=== PATIENT | female | born 1980 | race Caucasian/White ===

== ENCOUNTER 2019-07-24 06:06 | Emergency (ER) | payer BC, SELFPAY ==
[2019-07-24 06:20] VITALS: BP 119/66; PULSE 77; RESP 17; TEMP 36.6; O2SAT 100
[2019-07-24] MEDS: KETOROLAC 30 MG/ML VIAL (*BKC) IV PUSH (06:50)
[2019-07-24] MEDS: METOCLOPRAMIDE HCL INJ 10 MG/2 ML VIAL IV PUSH (06:51)
[2019-07-24] MEDS: SODIUM CHLORIDE 0.9% IV 1,000 ML 999 ML IV CONT (06:51)
[2019-07-24] MEDS: methylPREDNISolone SOD SUCC 40 MG VIAL 80 MG IV PUSH (06:51)
[2019-07-24 07:08] LABS: Basophils Absolute Auto 0.1 K/mm3 (0.0-0.1); Basophils Percent Auto 1.2 % (0.2-1.2); Eosinophils Absolute Auto 0.7 K/mm3 (0-0.3); Eosinophils Percent Auto 8.8 % (0-4.4); Hematocrit 34.3 % (37.0-47.0); Hemoglobin 11.3 g/dL (12.0-15.0); Immature Granulocyte Absolute 0.02 K/mm3 (0.00-0.031); Immature Granulocyte Percent A 0.3 % (0-0.5); Lymphocytes Absolute Auto 2.59 K/mm3 (0.9-3.2); Lymphocytes Percent Auto 34.7 % (18.3-44.2); Mean Corpuscular HGB Conc 32.9 g/dl (32-36); Mean Corpuscular Hemoglobin 28.7 pg (26-34); Mean Corpuscular Volume 87.1 fl (80-100); Mean Platelet Volume 10.1 fl (7.4-10.4); Monocytes Absolute Auto 0.5 K/mm3 (0.1-0.6); Monocytes Percent Auto 6.4 % (2.6-8.5); Neutrophils Absolute Auto 3.6 K/mm3 (1.3-6.7); Neutrophils Percent Auto 48.6 % (45.5-73.1); Platelet Count Result 330 k/mm3 (150-375); Red Blood Count 3.94 M/mm3 (4.2-5.4); Red Cell Distribution Width 13.9 % (11.5-14.5); White Blood Count 7.5 K/mm3 (4.5-10.0)
[2019-07-24 07:21] LABS: Add Urine Microscopic? YES; Appearance Urine Clear (Clear); Bacteria Urine Trace /hpf; Bilirubin Urine Negative (Negative); Blood Urine 3+ (Negative); Color Urine Yellow (Yellow); Glucose Urine UA Negative (Negative); Ketones Urine Negative (Negative); Leukocyte Esterase Ur Negative LEU/UL (Negative); Mucus Urine Rare /lpf; Nitrate Urine Negative (Negative); Protein Urine Negative (Negative); RBC Urine 0-2 /hpf (0-2); Specific Grav Ur 1.012 (1.001-1.035); Squamous Epithelial Cell Urine Few /hpf (Few); Urobilinogen Urine Negative mg/dL (<2.0); WBC Urine 0-3 /hpf
[2019-07-24 07:23] LABS: Blood Urea Nitrogen 11 mg/dL (7-17); Calcium 8.6 mg/dL (8.4-10.2); Carbon Dioxide 23 mmol/L (22-30); Chloride 107 mmol/L (98-107); Estimated CRCL calculation 129 ml/min; Estimated Glomerular Filt Rate > 60; Glucose 90 mg/dL (65-105); Potassium 3.8 mmol/L (3.4-5.0); Sodium 135 mmol/L (137-145)
--- NOTE | 2019-07-24 08:02 | ED.GENADULT ---
HPI - General Adult General Chief complaint: Headache Stated complaint: headache Time Seen by Provider: 07/24/19 06:30 History of Present Illness HPI narrative: Patient is 39 y/o female complaining of sharp, bilateral frontal headache since yesterday. She rates her pain as 7/10. Her pain radiates to occipital region. She has some nausea and vomiting. She also reports seeing spots. She denies any fever, chill, neck pain/stiffness. She also denies any focal weakness or numbness. She reports history of migraine. Related Data Allergies Allergy/AdvReac Type Severity Reaction Status Date / Time No Known Allergies Allergy Unknown Unknown Verified 01/21/19 21:24 Review of Systems Constitutional: Constitutional: Reports as per HPI, Denies chills, Denies fever(s), Reports headache(s) and Denies weakness Eyes: Eyes: Denies blurry vision and Reports spots in vision ENT: Denies headache(s) and Denies neck pain Cardiovascular: Cardiovascular: Denies chest pain and Denies dyspnea Respiratory: Respiratory: Denies cough and Denies dyspnea Gastrointestinal: Gastrointestinal: Denies abdominal pain, Denies diarrhea, Reports nausea and Reports vomiting Genitourinary: Genitourinary: Denies hematuria and Denies dysuria Musculoskeletal: Musculoskeletal: Denies back pain and Denies neck pain Neurologic: Denies headache(s) and Denies weakness PMFSH Past Medical History Medical History (Updated 07/24/19 @ 08:34 by Isabella Haddad MD) Migraine Social History Social History Gender identity (if verbalized by the patient): Female Exam Const: General: no acute distress and well developed Orientation/consciousness: oriented to person, oriented to place, oriented to time and patient oriented x3 HENMT: Head: normocephalic Ears: external ears normal General nose exam: Normal external nose present Eyes: General: appearance normal, both eyes and all related structures Conjunctivae: conjunctivae normal Neck: Neck: normal visual inspection and full ROM Chest: Chest palpation & inspection: normal inspection of the chest and no tenderness Resp: Effort & Inspection: normal respiratory effort Auscultation: clear to auscultation bilaterally Cardio: Rate: regular rate Rhythm: regular rhythm GI: GI Palp: No abdominal tenderness and Yes Soft to palpation Skin: General skin exam: normal color and turgor normal Neuro: General: oriented to person, oriented to place, oriented to time and patient oriented x3 Cranial nerves: Yes CN's II-XII intact bilaterally Cognition (Neuro): normal cognition Speech: normal speech Motor exam (neuro): 5/5 motor strength present throughout Sensory Exam: normal sensation Coordination: [id number] test normal and devq-[id number] test normal Extrem: General: normal to inspection, full ROM and no pedal edema Psych: Appearance: grossly normal Mental Status: mental status grossly normal Affect: normal affect Course Vital Signs Vital signs: Vital Signs Temperature 36.6 C 07/24/19 06:20 Pulse Rate 77 07/24/19 06:20 Respiratory Rate 17 07/24/19 06:20 Blood Pressure 119/66 07/24/19 06:20 Pulse Oximetry 100 07/24/19 06:20 Temperature 36.6 C 07/24/19 06:20 Pulse Rate 77 07/24/19 08:36 Respiratory Rate 14 07/24/19 08:36 Blood Pressure 111/69 07/24/19 08:36 Pulse Oximetry 100 07/24/19 08:36 Medical Decision Making Vital Signs Vital Signs: Vital Signs Temperature 36.6 C 07/24/19 06:20 Pulse Rate 77 07/24/19 06:20 Respiratory Rate 17 07/24/19 06:20 Blood Pressure 119/66 07/24/19 06:20 Pulse Oximetry 100 07/24/19 06:20 Temperature 36.6 C 07/24/19 06:20 Pulse Rate 77 07/24/19 08:36 Respiratory Rate 14 07/24/19 08:36 Blood Pressure 111/69 07/24/19 08:36 Pulse Oximetry 100 07/24/19 08:36 Lab Data Result diagrams: 07/24/19 07:02 07/24/19 07:02 Labs: L
[2019-07-24 08:36] VITALS: BP 111/69; PULSE 77; RESP 14; O2SAT 100
== END 2019-07-24 08:49 | disposition home or self-care (01) ==
PROVIDERS: Emergency Provider Emergency Medicine
DX: R51 Headache (principal)
CPT/HCPCS: 36415; 80048; 81001; 85025; 96361; 96374; 96375; 99284; J1200; J1885; J2765; J2920; J7030

== ENCOUNTER 2020-01-18 23:03 | Emergency (ER) | payer MEDICAID, SELFPAY ==
--- NOTE | ~2020-01-18 | XR_ITS ---
EXAMINATION: XR hand RT min 3V INDICATION: Right hand pain after fall TECHNIQUE: Three views of the right hand are obtained. COMPARISON: None available FINDINGS: There is no acute fracture, dislocation, or subluxation. The joint spaces and soft tissues are unremarkable. Mild irregularity of the shaft of the fifth metacarpal likely reflects prior injury . IMPRESSION: 1. No acute osseous abnormality. Reviewed, dictated and finalized at location A.
[2020-01-18 23:08] VITALS: BP 102/52; PULSE 90; RESP 18; TEMP 36.1; O2SAT 100
--- NOTE | 2020-01-19 00:22 | ED.UPPEXIN ---
HPI - Extremity Injury (Upper) General Chief Complaint: Extremity Injury, Upper Stated Complaint: possible broken wrist Time Seen by Provider: 01/18/20 23:15 History of Present Illness HPI narrative: Patient is a 39-year-old female who presents the ER with right hand pain. She was running up a hill chasing a dog when she tripped and fell on her outstretched hand. She felt a crack or pop. She has throbbing pain along the palm of her hand and it worsens with flexion of her fingers. No swelling or bruising. She not strike her head or lose consciousness. She does have an abrasion to her right knee. Related Data Home Medications Medication Instructions Recorded Confirmed No Home Medications 01/18/20 01/18/20 Allergies Allergy/AdvReac Type Severity Reaction Status Date / Time No Known Allergies Allergy Unknown Unknown Verified 01/18/20 23:14 Review of Systems Musculoskeletal: Musculoskeletal: Reports arthralgias, Denies joint swelling and Denies muscle cramps Integumentary/Breasts: Comments: Abrasion Neurologic: Denies focal weakness and Denies numbness PMFSH Past Medical History Medical History (Updated 01/19/20 @ 00:28 by Maikol Plata MD) Migraine Surgical History Surgical History (Updated 01/19/20 @ 00:23 by Maikol Plata MD) H/O: hysterectomy History of appendectomy History of cholecystectomy Social History Social History (Updated 01/19/20 @ 00:23 by Maikol Plata MD) Tobacco type: e-cigarettes/vaping Gender identity (if verbalized by the patient): Female Exam Narrative: Exam Narrative: GENERAL: Well-appearing, well-nourished, and in no acute distress. HEAD: Normocephalic, atraumatic. CHEST: Clear to auscultation. No respiratory distress. HEART: Regular rate and rhythm. Normal peripheral pulses. EXTREMITIES: Focused exam of the right upper extremity reveals no tenderness of the shoulder elbow with normal range of motion. The right wrist she has normal flexion but increased pain with extension. No snuffbox tenderness or ulnar styloid tenderness. Patient has tenderness along the third and fourth metacarpals on the palmar aspect of the hand. Also has increased pain with flexion of digits 3/4. Otherwise no deformity or bruising. Sensation intact. Normal radial pulses. SKIN: Warm, dry, abrasion right knee NEURO: No focal deficits. Alert and oriented x3. Course Course Emergency Course: X-ray negative for fracture. Patient placed in volar splint for comfort. Vital Signs Vital signs: Vital Signs Temperature 97 F L 01/18/20 23:08 Pulse Rate 90 01/18/20 23:08 Respiratory Rate 18 01/18/20 23:08 Blood Pressure 102/52 L 01/18/20 23:08 Pulse Oximetry 100 01/18/20 23:08 Temperature 97 F L 01/18/20 23:08 Pulse Rate 90 01/18/20 23:08 Respiratory Rate 18 01/18/20 23:08 Blood Pressure 102/52 L 01/18/20 23:08 Pulse Oximetry 100 01/18/20 23:08 Procedures Orthopedic Splinting/Casting Injury #1: Splinting/Casting Date: 01/19/20 Splinting/Casting Time: 00:26 Side: right Upper Extremity Injury Location: wrist Upper Extremity Immobilizer: volar splint Splint: customized in ED Pre-Procedure Neuro Vascular Exam: normal Post-Procedure Neuro Vascular Exam: normal Additional Comments: 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 MDM - Extremity Injury (Upper) Imaging Data My impression: X-ray right hand: Negative Discharge Plan Discharge Clinical Impression: Sprain and strain of wrist Patient Disposition: Home, Self-Care Condition: Stable Instructions: Splint Care (ED), Hand Sprain (ED) Additional Instructions: Return the ER if you have fever over 100.4 ?F, you have new injury, you have chest pain or shortness of breath, you have additional concerns. Your x-ray images were read as negative, if the radiologist finds a discrepancy in the morning you will be contacted. Prescriptions: No Action No Home
[2020-01-19 00:40] VITALS: BP 109/71; PULSE 84; RESP 16; O2SAT 100
--- NOTE | 2020-01-29 23:27 | PC.NURSE ---
LATE ENTRY This note is being entered to document information to the patient's record. The following information was omitted on [01/19/2020],short arm volar applied to right arm. +distal pulses by [jeimy snell].
== END 2020-01-19 00:40 | disposition home or self-care (01) ==
PROVIDERS: Emergency Provider Emergency Medicine
DX: S66.911A Strain of unspecified muscle, fascia and tendon at wrist and hand level, right hand, initial encounter (principal); S63.501A Unspecified sprain of right wrist, initial encounter; Y93.02 Activity, running; F17.290 Nicotine dependence, other tobacco product, uncomplicated; W10.2XXA Fall (on)(from) incline, initial encounter
CPT/HCPCS: 29125; 73130; 99283; A9270

== ENCOUNTER 2020-02-18 10:06 | Emergency (ER) | payer OTHER, SELFPAY ==
--- NOTE | ~2020-02-18 | XR_ITS ---
XR finger 5th RT min 2V DATE: 02/18/2020 10:27 INDICATION: Injury TECHNIQUE: 5 views COMPARISON: None FINDINGS: No fracture or dislocation, periosteal reaction or bone destruction. 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 No opaque soft tissue foreign body or subcutaneous emphysema. IMPRESSION: No fracture or dislocation Reviewed, dictated and finalized at location A. IMPRESSION: No fracture or dislocation
[2020-02-18 10:10] VITALS: BP 143/69; PULSE 85; RESP 16; TEMP 36.1; O2SAT 100
--- NOTE | 2020-02-18 10:34 | ED.UPPEXIN ---
HPI - Extremity Injury (Upper) General Chief Complaint: Extremity Injury, Upper Stated Complaint: RIGHT FINGER INJURY Time Seen by Provider: 02/18/20 10:33 Source: patient Mode of arrival: ambulatory Limitations: no limitations History of Present Illness HPI narrative: Patient is a 39-year-old female who presents for evaluation of right fifth digit pain. Patient states that yesterday her horse spooked while she was holding him on a rope lead, pulling her and right fifth digit. Patient reports pain in the right fifth digit, mild thumb pain. No numbness. Patient has full range of motion, however movement does worsen pain in the right fifth digit. Patient is right-hand dominant. No laceration. Mild swelling, bump at the knuckle. Patient states she wanted to ensure nothing was broken. Related Data Home Medications Medication Instructions Recorded Confirmed No Home Medications 01/18/20 01/18/20 Allergies Allergy/AdvReac Type Severity Reaction Status Date / Time No Known Allergies Allergy Unknown Unknown Verified 01/18/20 23:14 Review of Systems Review of Systems: Narrative: CONSTITUTIONAL: Denies fever RESPIRATORY: Denies cough GASTROINTESTINAL: Denies abdominal pain SKIN: Denies rash MUSCULOSKELETAL: Reports right fifth digit pain, mild right thumb pain NEUROLOGIC: Denies numbness PMFSH Past Medical History Medical History Migraine Surgical History Surgical History H/O: hysterectomy History of appendectomy History of cholecystectomy Social History Social History Tobacco type: e-cigarettes/vaping Gender identity (if verbalized by the patient): Female Exam Narrative: Exam Narrative: GENERAL: Awake, alert, conversant HEAD: Normocephalic, atraumatic. EYES: PERRLA and EOMI. ENT: Nares clear, no rhinorrhea or epistaxis. Mucous membranes moist. NECK: Supple. CHEST: No respiratory distress, breathing even and non labored HEART: Regular rate, sinus rhythm ABDOMEN:Non distended, non tender EXTREMITIES: Mild edema at the distal phalanx, right fifth digit. Capillary refill less than 3 seconds. Intact flexion and at the DIP and PIP, this does elicit pain. No edema, no deformity. No metacarpal pain. No pain at the thenar eminence of the right thumb. No laceration. No deformity. Radial pulse 2+. Intact sensation median, ulnar, radial nerve distribution. SKIN: Warm, dry, no rash. NEURO:No focal deficits. Alert and oriented x3 Course Vital Signs Vital signs: Vital Signs Temperature 36.1 C L 02/18/20 10:10 Pulse Rate 85 02/18/20 10:10 Respiratory Rate 16 02/18/20 10:10 Blood Pressure 143/69 H 02/18/20 10:10 Pulse Oximetry 100 02/18/20 10:10 Temperature 36.1 C L 02/18/20 10:10 Pulse Rate 85 02/18/20 10:10 Respiratory Rate 16 02/18/20 10:10 Blood Pressure 143/69 H 02/18/20 10:10 Pulse Oximetry 100 02/18/20 10:10 MDM - Extremity Injury (Upper) MDM Narrative Medical decision making narrative: Patient with right fifth digit pain after pulling mechanism on hand from a horse lead. At the time of assessment, patient is neurovascularly intact, there is no gross deformity or bruising. Patient does have pain with flexion at the DIP and PIP but can elicit these movements independently. No boutonniere swan-neck deformity. No fracture on imaging. No tenderness in the hand or thumb to warrant imaging of the structures. Advised patient to continue Tylenol and ibuprofen. At this point, patient likely with finger sprain, with soft tissue injury. Patient does not need any emergent hand surgery follow-up at this point. Did give advise return precautions, advised to take anti-inflammatories, call on-call hand surgeon if pain persists and is not resolving in the next 10 to 14 days. Differential Diagnosis Differential di
[2020-02-18 10:54] VITALS: BP 118/59; PULSE 78; RESP 16; O2SAT 100
--- NOTE | 2020-02-20 10:03 | PC.NURSE ---
LATE ENTRY This note is being entered to document information to the patient's record. The following information was omitted on [02/18/2020], by [anjana]. neno from [facility] for placement of finger splint.
== END 2020-02-18 10:55 | disposition home or self-care (01) ==
PROVIDERS: Emergency Provider Emergency Medicine
DX: S63.616A Unspecified sprain of right little finger, initial encounter (principal); X50.0XXA Overexertion from strenuous movement or load, initial encounter
CPT/HCPCS: 29130; 73140; 99283